=== PATIENT | male | born 1950 | race Caucasian/White ===

== ENCOUNTER 2024-10-18 15:44 | Inpatient (IN) ==
[2024-10-18] MEDS: METHYLPREDNISOLONE SOD SUCC/PF 125 MG/2 ML VIAL IVP ONE (16:10)
[2024-10-18 16:19] LABS: Basophils #(Absolute) Auto 0.0 (0.0-0.1); Eosinophils#(Absolute)Auto 0.0 (0.0-0.3); Eosinophils%(Percent) Auto 0.0 % (0.0-4.0); Monocytes #(Absolute)- Auto 1.0 (0.2-0.8); White Blood Count 15.8 K/uL (3.7-9.6)
[2024-10-18 16:21] LABS: Basophils%(Percent) Auto 0.3 (0.0-1.3); Granulocytes % - Auto 77.3 % (49.1-73.1); Granulocytes#(Absolute)- Auto 12.2 (2.0-6.2); Mean Corpuscular Volume 91.1 fl (81.9-96.5); Monocytes %(Percent)- Auto 6.3 % (4.5-10.7); Platelet Count 135 K/uL (142-355)
[2024-10-18 16:26] LABS: Hematocrit 58.3 % (41.3-50.1)
[2024-10-18 16:27] LABS: Carbon Dioxide 22.0 mmol/L (21-32); Glucose 232.0 mg/dL (70-110); Potassium 3.8 mmol/L (3.6-5.2); Sodium 137.0 mmol/L (136-145)
[2024-10-18 16:28] LABS: Oxygen Saturation ABG 92 % (92-100); PCO2 ABG 24 mmHg (35-45); PO2 ABG 63 mmHg (60-100)
[2024-10-18 19:29] LABS: PH BODY FLUID EXCP BLOOD 6.0 (5 - 9)
[2024-10-19] MEDS ORDERED: AZITHROMYCIN 500 MG VIAL ONE (02:15)
[2024-10-19] MEDS ORDERED: 0.9 % SODIUM CHLORIDE 250 ML IV ONE (02:15)
[2024-10-19] MEDS: AZITHROMYCIN 500 MG 500 MG in 0.9 % SODIUM CHLORIDE 250 ML IV ONE (02:18)
--- NOTE | 2024-10-19 03:14 | Emergency Department Note ---
HPI - SOB/Dyspnea General Chief Complaint: SOB -Shortness of Breath Stated Complaint: FALL Time Seen by Provider: 10/18/24 15:57 Source: patient Mode of arrival: walk-in Limitations: no limitations History of Present Illness HPI Narrative: 74-year-old male patient presents Is alert and oriented x 4 to the ER for his shortness of breath and generalized weakness. She states that this has been going on for couple days progressively getting worse. Patient's brother is at bedside states that the fact the patient this morning lying on the ground. Patient states he has some generalized weakness and that he had a ground-level fall. Denies any loss consciousness or dizziness. MD elicited complaint: Reports shortness of breath and cough; Denies pain with inspiration, chest pain, "asthma attack" or anxiety Pertinent past history: Reports COPD and pneumonia Onset (ago): day(s) (3) Context: Reports recent illness Timing: Reports intermittent Severity: mild Exacerbating factors: Reports movement and coughing Relieving factors: Reports rest Known history of: Reports COPD Associated symptoms: Reports denies other symptoms Treatment prior to arrival: Reports none Related Data Home oxygen amount: none Previous Rx's Medication Instructions Recorded amlodipine 5 mg tablet (Norvasc) See Rx Instructions . Route 10/31/23 .COMPLEX blood pressure #30 tabs losartan 100 mg tablet 100 mg PO DAILY blood pressu re 30 10/31/23 days #30 tabs Allergies Allergy/AdvReac Type Severity Reaction Status Date / Time No Known Drug Allergies Allergy Verified 10/18/24 16:18 Review of Systems Status of ROS 10 or more systems reviewed and unremark able except as noted in history and below Respiratory Reports: shortness of breath, cough and wheezing PFSH PFSH Medical History Afib Skin cancer Arthritis Surgical History H/O hernia repair Hx of appendectomy Social History Smoking status: current every day smoker Within the past year, how often did you have a drink containing alcohol: never Score interpretation: A score less than 4 is consistent with normal alcohol consumption. Non-prescribed substance use: denies use What is your current living situation: I presently have a place to live Feel stressed/tense/nervous/anxious/difficulty sleeping: not at all Due to disability, difficulty making decisions: No Exam Constitutional: normal general appearance, no apparent distress and average body habitus Vital Signs - 24 hr 10/18/24 15:47 10/18/24 16:07 10/18/24 16:32 Temperature 97.5 F L Pulse Rate 121 H 130 H Respiratory Rate 44 H 44 H Blood Pressure 190/102 185/125 Pulse Oximetry 97 96 96 Oxygen Delivery Me thod Room Air Nasal Cannula Oxygen Flow Rate 2 10/18/24 16:32 10/18/24 17:16 10/18/24 17:45 Temperature Pulse Rate 117 H 114 H 108 H Respiratory Rate 35 H 30 H 25 H Blood Pressure 175/101 159/82 158/86 Pulse Oximetry 96 96 96 Oxygen Delivery Me thod Nasal Cannula Nasal Cannula Nasal Cannula Oxygen Flow Rate 2 2 2 10/18/24 18:16 10/18/24 18:46 10/18/24 19:15 Temperature Pulse Rate 117 H 93 H 97 H Respiratory Rate 23 21 21 Blood Pressure 154/89 174/99 169/93 Pulse Oximetry 96 96 96 Oxygen Delivery Me thod Nasal Cannula Nasal Cannula Nasal Cannula Oxygen Flow Rate 2 2 2 10/18/24 20:00 10/18/24 21:00 10/18/24 22:00 Temperature 98.0 F Pulse Rate 98 H 96 H 87 Respiratory Rate 20 20 19 Blood Pressure 148/81 162/82 161/71 Pulse Oximetry 96 96 94 L Oxygen Delivery Me thod Room Air Room Air Room Air Oxygen Flow Rate 10/18/24 23:30 10/19/24 00:02 Temperature 98.2 F 98.2 F Pulse Rate 86 80 Respiratory Rate 19 18 Blood Pressure 146/84 164/85 Pulse Oximetry 95 95 Oxygen Delivery Me thod Room Air Room Air Oxygen Flow Rate 0 0 HENMT: normocephalic Eyes: PERRL and EOMs intact bilaterally Neck/C-Spine: visual inspection normal and trachea midline Lymph: no lymphadenopathy noted and no lymphedema noted Chest: inspection of chest normal and palpation of chest normal Respiratory: breath sounds equal bilaterally, abnormal respiratory effort (labored), auscultation abnormal and wheezing noted Cardiovascular: heart rate abnormal and rhythm abnormal Neurology: meat team lead II-XII intact and no movement abnormality noted Psychiatry: mental status grossly normal and oriented x3 Skin: skin color normal Course Course Hospital Course: Patient was evaluated in the ER found to be in no acute distress. Breath sounds show bilateral expiratory wheezing. Pt was given continuous duobeb treatments with solumedrol 125mg IV. Patient is afebrile during evaluation. Patient is found to be tachycardic and tachypneic. O2 saturation is 97% on room air. EKG shows sinus tachycardia with occasional PVCs. Cardiac rhythm is irregular although continues to be a sinus rhythm. Cardiac enzymes shows elevated ck however troponin is normal x 2. CK is trending down. This could be due to patient being on the floor overnight. Chest x ray shows COPD however CTA chest shows possible infection vs neoplasm. Pt wbc is elevated at 15 which leads more towards infectious. Blood cultures were obtained and Pt was given azithromycin 500mg IV. Pt was found to be hypertensive. Pt has a hx of hypertension however is non compliant with medication. Pt states that he just doesn't like to take medication. Pt further admits that he doesn't take care of himself like he should. Pt has a small hematoma to the forehead and states that he did take a fall. Brother was concerned that the patient had period of confusion. Head CT shows no acute intracranial findings. Pt states that he hasn't been confused, stating that he likes to play with his brother when he asks stupid questions. I have discussed with patient the desire to admit for further evaluation and treatment. Pt has agreed to admission. Vital Signs Vital signs: Vital Signs Temperature 97.5 F L 10/18/24 15:47 Pulse Rate 121 H 10/18/24 15:47 Respiratory Rate 44 H 10/18/24 15:47 Blood Pressure 190/102 10/18/24 15:47 Pulse Oximetry 97 10/18/24 15:47 Oxygen Delivery Method Room Air 10/18/24 15:47 Temperature 98.2 F 10/19/24 00:02 Pulse Rate 80 10/19/24 00:02 Respiratory Rate 18 10/19/24 00:02 Blood Pressure 164/85 10/19/24 00:02 Pulse Oximetry 95 10/19/24 00:02 Oxygen Delivery Method Room Air 10/19/24 00:02 Oxygen Flow Rate 0 10/19/24 00:02 MDM - SOB/Dyspnea Lab Data Labs: Lab Results 10/18/24 10/18/24 10/18/24 Range/Units 16:04 16:16 16:19 WBC 15.8 H (3.7-9.6) K/uL RBC 6.4 H (4.40-5.80) M/uL Hgb 20.0 H* (14.0-17.4) gm/dL Hct 58.3 H* (41.3-50.1) % MCV 91.1 (81.9-96.5) fl MCH 31.2 (27.6-33.7) pg MCHC 34.3 (33.0-35.7) g/dl RDW 13.8 (11.0-14.8) % Plt Count 135 L (142-355) K/uL MPV 11.6 H (6.0-10.4) fl Gran % 77.3 H (49.1-73.1) % Lymph % (Auto) 16.1 L (17.6-39.05) % [place] % (Auto) 6.3 (4.5-10.7) % Eos % (Auto) 0.0 (0.0-4.0) % Baso % (Auto) 0.3 (0.0-1.3) Lymph # (Auto) 2.5 (0.8-2.9) [place] # (Auto) 1.0 H (0.2-0.8) Eos # (Auto) 0.0 (0.0-0.3) Baso # (Auto) 0.0 (0.0-0.1) Absolute Gran (auto) 12.2 H (2.0-6.2) ABG pH 7.42 (7.35-7.45) ABG pCO2 24 L* (35-45) mmHg ABG pO2 63 (60-100) mmHg ABG PO2/FiO2 Ratio ABG HCO3 (22-26) mmo1/L ABG Total CO2 mmo1/L ABG O2 Saturation (92-100) % ABG Base Excess (-2-2) mmo1/L A-a O2 Gradient mmHg Respiratory Index (0-1) FiO2 % Sodium 137 (136-145) mmol/L Potassium 3.8 (3.6-5.2) mmol/L Chloride 100.0 (98-107) mmol/L Carbon Dioxide 22 (21-32) mmol/L Anion Gap 15.0 H (4-14) mEq/L BUN 57 H (7-18) mg/dL Creatinine 1.9 H (0.6-1.3) mg/dL Estimated GFR 36.3 (>59.9) Glucose 232 H (70-110) mg/dL Calcium 9.3 (8.5-10.1) mg/dL Total Bilirubin 0.93 (0.0-1.0) mg/dL AST 58 H (15-37) U/L ALT 49 (30-65) U/L Alkaline Phosphatase 132 (50-136) U/L Total Creatine Kinase 526 H* (39-308) U/L Troponin I High Sens 45.30 (4.0-60.4) ng/L Total Protein 8.1 (6.4-8.2) g/dL Albumin 3.5 (3.4-5.0) g/dL Urine Color (STRAW/YELL.) Urine Appearance (CLEAR) Ur Specific [place] (1.001-1.035) Urine Protein (NEGATIVE) Urine Glucose (UA) (NORMAL) Urine Ketones (NEGATIVE) Urine Occult Blood (NEG - TRACE) Urine Nitrite (NEGATIVE) Urine Bilirubin (NEGATIVE) Urine Urobilinogen (NORMAL) Ur Leukocyte Esterase (NEGATIVE) Urine RBC (0 - 5) Urine WBC ( 0 - 5) Ur Epithelial Cells (Few/HPF) Amorphous Sediment (Negative) Urine Bacteria (Negative) Urine Mucus (Negative) Urine Trichomonas (Negative) Urine Yeast (Negative) Fluid pH (5 - 9) COVID-19 (FARAZ) Not detected (Not Detectd) Influenza Type A Ag Negative (Negative) Influenza Type B Ag Negative (Negative) 10/18/24 10/18/24 10/19/24 Range/Units 16:19 19:15 00:40 WBC (3.7-9.6) K/uL RBC (4.40-5.80) M/uL Hgb (14.0-17.4) gm/dL Hct (41.3-50.1) % MCV (81.9-96.5) fl MCH (27.6-33.7) pg MCHC (33.0-35.7) g/dl RDW (11.0-14.8) % Plt Count (142-355) K/uL MPV (6.0-10.4) fl Gran % (49.1-73.1) % Lymph % (Auto) (17.6-39.05) % [place] % (Auto) (4.5-10.7) % Eos % (Auto) (0.0-4.0) % Baso % (Auto) (0.0-1.3) Lymph # (Auto) (0.8-2.9) [place] # (Auto) (0.2-0.8) Eos # (Auto) (0.0-0.3) Baso # (Auto) (0.0-0.1) Absolute Gran (auto) (2.0-6.2) ABG pH (7.35-7.45) ABG pCO2 (35-45) mmHg ABG pO2 120 (60-100) mmHg ABG PO2/FiO2 Ratio 0.53 ABG HCO3 15.6 L (22-26) mmo1/L ABG Total CO2 16.3 mmo1/L ABG O2 Saturation 92 (92-100) % ABG Base Excess -7.2 L (-2-2) mmo1/L A-a O2 Gradient 57 mmHg Respiratory Index 0.9 (0-1) FiO2 21 % Sodium (136-145) mmol/L Potassium (3.6-5.2) mmol/L Chloride (98-107) mmol/L Carbon Dioxide (21-32) mmol/L Anion Gap (4-14) mEq/L BUN (7-18) mg/dL Creatinine (0.6-1.3) mg/dL Estimated GFR (>59.9) Glucose (70-110) mg/dL Calcium (8.5-10.1) mg/dL Total Bilirubin (0.0-1.0) mg/dL AST (15-37) U/L ALT (30-65) U/L Alkaline Phosphatase (50-136) U/L Total Creatine Kinase 505 H* (39-308) U/L Troponin I High Sens 33.20 (4.0-60.4) ng/L Total Protein (6.4-8.2) g/dL Albumin (3.4-5.0) g/dL Urine Color [place]nal[place] (STRAW/YELL.) Urine Appearance Clear (CLEAR) Ur Specific [place] 1.020 (1.001-1.035) Urine Protein Negative (NEGATIVE) Urine Glucose (UA) Trace (NORMAL) Urine Ketones Negative (NEGATIVE) Urine Occult Blood Trace (NEG - TRACE) Urine Nitrite Negative (NEGATIVE) Urine Bilirubin Negative (NEGATIVE) Urine Urobilinogen Normal (NORMAL) Ur Leukocyte Esterase Negative (NEGATIVE) Urine RBC 5 - 10 (0 - 5) Urine WBC 2 - 5 ( 0 - 5) Ur Epithelial Cells Rare (Few/HPF) Amorphous Sediment Few (Negative) Urine Bacteria Negative (Negative) Urine Mucus Negative (Negative) Urine Trichomonas Negative (Negative) Urine Yeast Negative (Negative) Fluid pH 6.0 (5 - 9) COVID-19 (FARAZ) (Not Detectd) Influenza Type A Ag (Negative) Influenza Type B Ag (Negative) Discharge Plan Discharge Patient Disposition: Admitted As Observation Condition: Stable Clinical Impression: Acute exacerbation of chronic obstructive pulmonary disease, Pneumonia Time of Disposition: 03:16
[2024-10-19] MEDS ORDERED: ONDANSETRON HCL/PF 4 MG/2 ML VIAL INJ PRN (03:17)
[2024-10-19] MEDS: CEFTRIAXONE SODIUM 1 GM in 0.9 % SODIUM CHLORIDE MB+ 50 ML IV ONE (04:12)
[2024-10-19] MEDS: 0.9 % SODIUM CHLORIDE 1000 ML 1,000 ML IV SCH (04:13)
[2024-10-19] MEDS: IPRATROPIUM/ALBUTEROL SULFATE 3 ML AMPUL.NEB INH ONE ×3 (04:13→15:28)
[2024-10-19 05:31] LABS: Basophils #(Absolute) Auto 0.0 (0.0-0.1); Basophils%(Percent) Auto 0.1 (0.0-1.3); Eosinophils#(Absolute)Auto 0.0 (0.0-0.3); Eosinophils%(Percent) Auto 0.0 % (0.0-4.0); Granulocytes % - Auto 80.4 % (49.1-73.1); Granulocytes#(Absolute)- Auto 8.0 (2.0-6.2); Hematocrit 47.0 % (41.3-50.1); Mean Corpuscular Volume 89.6 fl (81.9-96.5); Monocytes #(Absolute)- Auto 0.5 (0.2-0.8); Monocytes %(Percent)- Auto 5.2 % (4.5-10.7); Platelet Count 102 K/uL (142-355); White Blood Count 10.0 K/uL (3.7-9.6)
[2024-10-19 05:51] LABS: Carbon Dioxide 18.0 mmol/L (21-32); Glucose 205.0 mg/dL (70-110); Potassium 3.8 mmol/L (3.6-5.2); Sodium 136.0 mmol/L (136-145)
[2024-10-19] MEDS: IPRATROPIUM/ALBUTEROL SULFATE 3 ML AMPUL.NEB INH SCH (08:13)
[2024-10-19] MEDS: AMLODIPINE BESYLATE 5 MG TABLET PO SCH (08:54)
[2024-10-19] MEDS: METHYLPREDNISOLONE SOD SUCC/PF 40 MG/ML VIAL INJ SCH (08:54)
--- NOTE | 2024-10-19 10:32 | History & Physical Report ---
H&P: HPI History of Present Illness Chief complaint: PNEUMONIA,COPD EXACERBATION Narrative: Pleasant 74 year old male admitted for sob, falling. History of HTN. Patient with Total CK of 526 thought to be from laying in floor s/p fall. Albumin 2.8. Was treated with Solumedrol and Azithromycin. Blood cultures pending. CT Head with chronic microvascular changes, no acute changes. Stable 5.1 x 4.3 cm frontal region mass consistent with meningioma. Chest xray positive for COPD. CTA negative for PE, findings of infectious vs malignancy. Ulcerative plaques on thoracic abdominal aorta. Today he just states he has not been feeling well "since all this has been going on" pointing to chest and stomach. He is lying right side on exam. Review of Systems Status of ROS 10 or more systems reviewed and unremark able except as noted in history and below Cardiovascular Reports: shortness of breath with exertion Respiratory Reports: shortness of breath, cough and wheezing Allergic/Immunologic Reports: wheezing PFSH PFSH Medical History Afib Skin cancer Arthritis Surgical History H/O hernia repair Hx of appendectomy Social History Smoking status: current every day smoker Within the past year, how often did you have a drink containing alcohol: never Score interpretation: A score less than 4 is consistent with normal alcohol consumption. Non-prescribed substance use: denies use What is your current living situation: I presently have a place to live Highest level of school completed/degree received: decline to answer Feel stressed/tense/nervous/anxious/difficulty sleeping: not at all Due to disability, difficulty making decisions: No Meds Home Medications and Allergies Home Medications Medication Instructions Recorded Confirmed Type amlodipine 5 mg tablet (Norvasc) See Rx Instructions . Route 10/31/23 10/19/24 Rx .COMPLEX blood pressure #30 tabs losartan 100 mg tablet 100 mg PO DAILY blood pressu re 30 10/31/23 10/19/24 Rx days #30 tabs Allergies Allergy/AdvReac Type Severity Reaction Status Date / Time No Known Drug Allergies Allergy Verified 10/18/24 16:18 Exam Constitutional: normal general appearance (frail, ill appearing), no apparent distress, average body habitus and alert Vital Signs - 24 hr 10/18/24 15:47 10/18/24 16:07 10/18/24 16:32 Temperature 97.5 F L Pulse Rate 121 H 130 H Pulse Rate [Left] Respiratory Rate 44 H 44 H Blood Pressure 190/102 185/125 Blood Pressure [Le ft Arm] Pulse Oximetry 97 96 96 Oxygen Delivery Me thod Room Air Nasal Cannula Oxygen Flow Rate 2 10/18/24 16:32 10/18/24 17:16 10/18/24 17:45 Temperature Pulse Rate 117 H 114 H 108 H Pulse Rate [Left] Respiratory Rate 35 H 30 H 25 H Blood Pressure 175/101 159/82 158/86 Blood Pressure [Le ft Arm] Pulse Oximetry 96 96 96 Oxygen Delivery Me thod Nasal Cannula Nasal Cannula Nasal Cannula Oxygen Flow Rate 2 2 2 10/18/24 18:16 10/18/24 18:46 10/18/24 19:15 Temperature Pulse Rate 117 H 93 H 97 H Pulse Rate [Left] Respiratory Rate 23 21 21 Blood Pressure 154/89 174/99 169/93 Blood Pressure [Le ft Arm] Pulse Oximetry 96 96 96 Oxygen Delivery Me thod Nasal Cannula Nasal Cannula Nasal Cannula Oxygen Flow Rate 2 2 2 10/18/24 20:00 10/18/24 21:00 10/18/24 22:00 Temperature 98.0 F Pulse Rate 98 H 96 H 87 Pulse Rate [Left] Respiratory Rate 20 20 19 Blood Pressure 148/81 162/82 161/71 Blood Pressure [Le ft Arm] Pulse Oximetry 96 96 94 L Oxygen Delivery Me thod Room Air Room Air Room Air Oxygen Flow Rate 10/18/24 23:30 10/19/24 00:02 10/19/24 03:55 Temperature 98.2 F 98.2 F Pulse Rate 86 80 79 Pulse Rate [Left] Respiratory Rate 19 18 Blood Pressure 146/84 164/85 Blood Pressure [Le ft Arm] Pulse Oximetry 95 95 Oxygen Delivery Me thod Room Air Room Air Oxygen Flow Rate 0 0 10/19/24 03:56 10/19/24 03:56 10/19/24 08:00 Temperature 97.2 F L 97.5 F L Pulse Rate Pulse Rate [Left] 85 85 Respiratory Rate 24 24 19 Blood Pressure Blood Pressure [Le ft Arm] 141/89 150/80 Pulse Oximetry 92 L 92 L 92 L Oxygen Delivery Me thod Room Air Room Air Room Air Oxygen Flow Rate 10/19/24 08:13 Temperature Pulse Rate Pulse Rate [Left] Respiratory Rate Blood Pressure Blood Pressure [Le ft Arm] Pulse Oximetry 92 L Oxygen Delivery Me thod Oxygen Flow Rate HENMT: normocephalic and head/scalp atraumatic Eyes: EOMs intact bilaterally Neck/C-Spine: visual inspection normal and trachea midline Lymph: no lymphadenopathy noted and no lymphedema noted Chest: inspection of chest normal Respiratory: breath sounds equal bilaterally, normal respiratory effort, clear to auscultation bilaterally and no wheezes Cardiovascular: normal heart rate noted, regular rhythm noted, no gallop, no rub, no murmur and no JVD Gastrointestinal: abdomen normal to inspection, abdomen soft to palpation, normoactive bowel sounds and no ascites Genitourinary: deferred Extremities: normal to inspection, normal to palpation and no tenderness Neurology: chiller technician II-XII intact, no movement abnormality noted and no fasciculations noted Psychiatry: mental status grossly normal and oriented x3 Skin: skin color normal Assessment and Plan Assessment and Plan (1) COPD exacerbation: Code(s): J44.1 - Chronic obstructive pulmonary disease with (acute) exacerbation (2) Fall: Code(s): W19.XXXA - Unspecified fall, initial encounter (3) YOLANDA (acute kidney injury): Code(s): N17.9 - Acute kidney failure, unspecified (4) Hypoalbuminemia: Code(s): E88.09 - Other disorders of plasma-protein metabolism, not elsewhere classified (5) High plasma creatine kinase (CK): Code(s): R79.89 - Other specified abnormal findings of blood chemistry Plan Continue IV rehydration Blood culture pending Azithromycin Repeat CBC, CMP in am. Replace albumin Continue Home medications Routine vital signs. Results Labs Labs: CBC 10/18/24 10/19/24 Range/Units 16:16 05:27 WBC 15.8 H 10.0 H (3.7-9.6) K/uL RBC 6.4 H 5.3 (4.40-5.80) M/uL Hgb 20.0 H* 16.5 (14.0-17.4) gm/dL Hct 58.3 H* 47.0 (41.3-50.1) % Plt Count 135 L 102 L (142-355) K/uL Gran % 77.3 H 80.4 H (49.1-73.1) % Lymph % (Auto) 16.1 L 14.3 L (17.6-39.05) % [place] % (Auto) 6.3 5.2 (4.5-10.7) % Eos % (Auto) 0.0 0.0 (0.0-4.0) % Baso % (Auto) 0.3 0.1 (0.0-1.3) Lymph # (Auto) 2.5 1.4 (0.8-2.9) [place] # (Auto) 1.0 H 0.5 (0.2-0.8) Eos # (Auto) 0.0 0.0 (0.0-0.3) Baso # (Auto) 0.0 0.0 (0.0-0.1) Absolute Gran (auto) 12.2 H 8.0 H (2.0-6.2) CMP 10/18/24 10/19/24 16:16 05:27 Sodium 137 136 Potassium 3.8 3.8 Chloride 100.0 104.0 Carbon Dioxide 22 18 L BUN 57 H 49 H Creatinine 1.9 H 1.5 H Glucose 232 H 205 H Calcium 9.3 8.4 L Cardiac Enzymes 10/18/24 10/19/24 16:16 00:40 Total Creatine Kinase 526 H* 505 H* Liver Function 10/18/24 10/19/24 Range/Units 16:16 05:27 Total Bilirubin 0.93 0.69 (0.0-1.0) mg/dL AST 58 H 45 H (15-37) U/L ALT 49 39 (30-65) U/L Alkaline Phosphatase 132 107 (50-136) U/L Albumin 3.5 2.8 L (3.4-5.0) g/dL Urine 10/18/24 19:15 Urine Color [place] Urine Appearance Clear Ur Specific [place] 1.020 Urine Protein 2+ Urine Glucose (UA) Trace ABG ABG results: 10/18/24 16:19 ABG pH 7.42 ABG pCO2 24 L* ABG pO2 120 ABG HCO3 15.6 L ABG Total CO2 16.3 ABG O2 Saturation 92 ABG Base Excess -7.2 L
[2024-10-19] MEDS ORDERED: ALBUMIN HUMAN 25% 100 ML IV SCH ×2 (10:45→11:30)
[2024-10-19] MEDS: ALBUMIN HUMAN 25% 100 ML IV STA (11:28)
[2024-10-20 04:58] LABS: Basophils #(Absolute) Auto 0.0 (0.0-0.1); Basophils%(Percent) Auto 0.1 (0.0-1.3); Eosinophils#(Absolute)Auto 0.0 (0.0-0.3); Eosinophils%(Percent) Auto 0.0 % (0.0-4.0); Granulocytes % - Auto 85.8 % (49.1-73.1); Granulocytes#(Absolute)- Auto 12.2 (2.0-6.2); Hematocrit 42.8 % (41.3-50.1); Mean Corpuscular Volume 88.7 fl (81.9-96.5); Monocytes #(Absolute)- Auto 0.8 (0.2-0.8); Monocytes %(Percent)- Auto 5.7 % (4.5-10.7); Platelet Count 122 K/uL (142-355); White Blood Count 14.2 K/uL (3.7-9.6)
[2024-10-20 05:46] LABS: Carbon Dioxide 22.0 mmol/L (21-32); Glucose 148.0 mg/dL (70-110); Potassium 3.6 mmol/L (3.6-5.2); Sodium 137.0 mmol/L (136-145)
[2024-10-20] MEDS: AZITHROMYCIN 500 MG 500 MG in 0.9 % SODIUM CHLORIDE 250 ML IV SCH (09:31)
[2024-10-20] MEDS: guaiFENesin 600 MG TAB.ER.12H PO SCH (09:31)
[2024-10-20] MEDS: CEFTRIAXONE SODIUM 1 GM in 0.9 % SODIUM CHLORIDE MB+ 50 ML IV SCH (09:33)
[2024-10-20] MEDS: IPRATROPIUM/ALBUTEROL SULFATE 3 ML AMPUL.NEB INH SCH (11:16)
--- NOTE | 2024-10-20 11:43 | Progress Note ---
Progress Note: Subjective Subjective Interval history: Mr. Flannery has no complaints this morning. He states that he is beginning to feel better after tx. Vitals at baseline. BUN trended down to 30 and CK is normal with IVF we will continue hydration. Glucoses have been elevated with no hx of diabetes so we will check A1C. WBC's are still elevated at 14, steriods vs PNA. Exam Constitutional: normal general appearance, no apparent distress and average body habitus Vital Signs - 24 hr 10/19/24 12:00 10/19/24 12:56 10/19/24 15:59 Temperature 97.5 F L 97.9 F Pulse Rate [Left] 74 74 Respiratory Rate 19 19 Blood Pressure Blood Pressure [Le ft Arm] 148/78 125/89 Pulse Oximetry 94 L 91 L 96 Oxygen Delivery Me thod Room Air Room Air 10/19/24 20:00 10/19/24 20:29 10/20/24 00:00 Temperature 98.6 F 98.4 F Pulse Rate [Left] 74 80 Respiratory Rate 19 18 Blood Pressure Blood Pressure [Le ft Arm] 132/62 166/81 Pulse Oximetry 95 95 93 L Oxygen Delivery Me thod Room Air Room Air 10/20/24 04:00 10/20/24 07:30 10/20/24 07:58 Temperature 98.0 F 98 F Pulse Rate [Left] 67 70 Respiratory Rate 19 17 Blood Pressure Blood Pressure [Le ft Arm] 131/81 129/75 Pulse Oximetry 95 91 L 89 L Oxygen Delivery Me thod Room Air Room Air 10/20/24 09:31 10/20/24 11:16 Temperature Pulse Rate [Left] Respiratory Rate Blood Pressure 129/75 Blood Pressure [Le ft Arm] Pulse Oximetry 93 L Oxygen Delivery Me thod HENMT: normocephalic Eyes: PERRL and EOMs intact bilaterally Neck/C-Spine: visual inspection normal and trachea midline Lymph: no lymphadenopathy noted and no lymphedema noted Chest: inspection of chest normal and palpation of chest normal Respiratory: breath sounds equal bilaterally, abnormal respiratory effort (labored), auscultation abnormal and wheezing noted Cardiovascular: heart rate abnormal and rhythm abnormal 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: 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 and no movement abnormality noted Psychiatry: mental status grossly normal and oriented x3 Skin: skin color normal Progress Note: Objective Labs Labs: CBC 10/20/24 Range/Units 04:30 WBC 14.2 H (3.7-9.6) K/uL RBC 4.8 (4.40-5.80) M/uL Hgb 15.0 (14.0-17.4) gm/dL Hct 42.8 (41.3-50.1) % Plt Count 122 L (142-355) K/uL Gran % 85.8 H (49.1-73.1) % Lymph % (Auto) 8.4 L (17.6-39.05) % [place] % (Auto) 5.7 (4.5-10.7) % Eos % (Auto) 0.0 (0.0-4.0) % Baso % (Auto) 0.1 (0.0-1.3) Lymph # (Auto) 1.2 (0.8-2.9) [place] # (Auto) 0.8 (0.2-0.8) Eos # (Auto) 0.0 (0.0-0.3) Baso # (Auto) 0.0 (0.0-0.1) Absolute Gran (auto) 12.2 H (2.0-6.2) CMP 10/20/24 04:30 Sodium 137 Potassium 3.6 Chloride 104.0 Carbon Dioxide 22 BUN 30 H Creatinine 1.1 Glucose 148 H Calcium 8.3 L Cardiac Enzymes 10/20/24 04:30 Total Creatine Kinase 252 Liver Function 10/20/24 Range/Units 04:30 Total Bilirubin 0.65 (0.0-1.0) mg/dL AST 39 H (15-37) U/L ALT 35 (30-65) U/L Alkaline Phosphatase 87 (50-136) U/L Albumin 3.0 L (3.4-5.0) g/dL Urine 10/18/24 19:15 Urine Color Annalise Urine Appearance Clear Ur Specific [place] 1.020 Urine Protein 2+ Urine Glucose (UA) Trace Imaging CT scan - head: Radiologist's impression: [place] [address] [place] [address] CT Scan Report Signed Patient: SUBHA FLANNERY MR#: [id number] : 1950 Acct:[id number] Age/Sex: 74 / M ADM Date: 10/18/24 Loc: ED Attending Dr: Ordering Physician: Keith Borjas NP Date of Service: 10/18/24 Procedure(s): CT head/brain wo con Accession Number(s): [id number] cc: Keith Borjas [employer]ER; Provider,NO PCP~ EXAM: HEAD CT WITHOUT INTRAVENOUS CONTRAST HISTORY: Altered mental status. TECHNIQUE: Spiral axial CT images are obtained through the brain without the administration of intravenous contrast. Additional sagittal and coronal reformatted images are reconstructed. COMPARISON: Head CT dated October 16, 2023. FINDINGS: There is a stable appearing, large (approximately 5.1 cm AP by 5.1 cm transverse by 4.3 cm CC) bilateral anterior inferior frontal region extra-axial mass with punctate internal calcifications, consistent with a meningioma. There is stable appearance of resultant mass effect upon the anterior inferior medial frontal lobes. There are parenchymal lucencies within the white matter tracks of the centrum semiovale, consistent with chronic sequela of atherosclerotic microvascular ischemic disease. There is diffuse cerebral cortical atrophy. The centrum semiovale, basal ganglia, cerebellum, and brainstem are otherwise grossly unremarkable for a noncontrast CT scan. There is no acute intracranial hemorrhage, gross acute infarction, intra-axial mass lesion, midline shift, or hydrocephalus seen. No extra-axial mass or abnormal fluid collection noted. The calvarium is intact. The partially imaged paranasal sinuses, middle ear cavities and mastoid air cells are clear. IMPRESSION: 1. Chronic microvascular ischemic disease, but no discernible acute infarction seen. Consider followup MRI with diffusion-weighted imaging to rule out occult acute infarction if clinically warranted. 2. No skull fracture, intracranial hemorrhage, intra-axial mass lesion, midline shift, or hydrocephalus seen. 3. Stable appearing, large (approximately 5.1 cm AP by 5.1 cm transverse by 4.3 cm CC) bilateral anterior inferior frontal region extra-axial mass with punctate internal calcifications, consistent with a meningioma. 4. Stable appearance of resultant mass effect upon the anterior inferior medial frontal lobes. 5. Otherwise unremarkable exam, without significant interval change seen. THIS IS AN ELECTRONICALLY VERIFIED FINAL REPORT 10/18/2024 5:26 PM - Electronically signed by Dov Dent MD Dictated By: Dov Dent M.D. Signed By: 10/18/24 1726 Chest x-ray: Radiologist's impression: Patient: SUBHA FLANENRY MR#: [id number] : 1950 Acct:[id number] Age/Sex: 74 / M ADM Date: 10/18/24 Loc: ED Attending Dr: Ordering Physician: Keith Borjas NP Date of Service: 10/18/24 Procedure(s): XR chest 1V Accession Number(s): [id number] cc: Keith Borjas NP~ EXAM: XR CHEST 1V HISTORY: shortness of breathshortness of breath; COMPARISON: 10/31/2023 FINDINGS: The trachea is midline. The cardiac silhouette is unremarkable. COPD the lungs are clear without focal infiltrate or effusion. The bony thorax is unremarkable. IMPRESSION: COPD No acute cardiopulmonary disease. THIS IS AN ELECTRONICALLY VERIFIED FINAL REPORT 10/18/2024 9:53 PM - Electronically signed by Brian Gonzalez MD Dictated By: Brian Gonzalez M.D. Signed By: 10/18/[id number] CT scan - chest: Radiologist's impression: [place] [address] CT Scan Report Signed Patient: SUBHA FLANNERY MR#: [id number] : 1950 Acct:[id number] Age/Sex: 74 / M ADM Date: 10/18/24 Loc: ED Attending Dr: Ordering Physician: Keith Borjas NP Date of Service: 10/18/24 Procedure(s): CT angio chest PE protocol Accession Number(s): [id number] cc: Keith Borjas NP; Provider,NO PCP~ EXAM: CTA CHEST WITH CONTRAST HISTORY: Shortness of breath COMPARISON: None. TECHNIQUE: Axial images were acquired of the chest with IV contrast for a CT angiogram. Coronal and sagittal images were provided. All images were reviewed in a variety of windows and levels. 3D 8 mm thick MIPS images were provided. RADIATION REDUCTION TECHNIQUE: Automated exposure control, Adjustment of the mA and/or kV according to patient size, or iterative reconstruction techniques were used. 8 mm thick axial MIPS images were provided. FINDINGS: CHEST: THYROID GLAND: The thyroid gland is unremarkable. HEART AND VESSELS: The heart size is within normal limits. There is no evidence of a pericardial effusion. The thoracic aorta is normal in size without evidence of aneurysm or dissection. The main pulmonary artery size is within normal limits. There are no filling defects seen in the visualized pulmonary arteries to suggest a pulmonary embolism. LYMPHNODES: There is no evidence of axillary, mediastinal, or hilar lymphadenopathy, AIRWAY: The trachea and mainstem bronchi are patent. No intraluminal lesions are seen. LUNGS: Nodules are seen in a tree-in-bud like distribution throughout the right and left lung. This is most pronounced in the right lower lung zone. This could represent such etiology as, but not limited to infectious process or endobronchial spread of malignancy. There is no pleural effusion or pneumothorax. ESOPHAGUS: The esophagus is grossly unremarkable. BONES: The visualized bones demonstrate degenerative changes. There are no concerning lytic or blastic lesions identified. UPPER ABDOMINAL STRUCTURES: The visualized portions of the upper abdominal st ructures demonstrates incompletely characterized bilateral adrenal gland nodules which measure 32 mm in the right adrenal gland and 29 mm in the left adrenal gland. Diffuse ulcerative plaques are noted throughout the thoracic and visualized portions of the abdominal aorta. IMPRESSION: 1. There are no filling defects seen in the visualized pulmonary arteries to suggest a pulmonary embolism. 2. Nodules are seen in a tree-in-bud like distribution throughout the right and left lung. This is most pronounced in the right lower lung zone. This could represent such etiology as, but not limited to infectious process or endobronchial spread of malignancy. 3. Emphysematous changes are noted. 4. The visualized portions of the upper abdominal structures demonstrates incompletely characterized bilateral adrenal gland nodules which measure 32 mm in the right adrenal gland and 29 mm in the left adrenal gland. 5. Diffuse ulcerative plaques are noted throughout the thoracic and visualized portions of the abdominal aorta. THIS IS AN ELECTRONICALLY VERIFIED FINAL REPORT 10/19/2024 12:05 AM - Electronically signed by Amanuel Bender MD Dictated By: Amanuel Bender M.D. Signed By: Progress Note: A&P Assessment and Plan (1) COPD exacerbation: Assessment and Plan: Zpak Rocephin 1gm IV daily Duoneb QID Pulmicort BID Mucinex 600mg po BID Solumedrol 40mg IV BID (2) Fall: Assessment and Plan: PT eval (3) YOLANDA (acute kidney injury): Assessment and Plan: NS@75ml/hr (4) Hypoalbuminemia: Assessment and Plan: Continue to monitor (5) High plasma creatine kinase (CK): Assessment and Plan: Resolved Plan Admit Continue IV rehydration Blood culture pending Repeat CBC, CMP in am. Continue Home medications Routine vital signs. Fall Risk Details Topete Fall Scale Risk Level: High Fall Risk Current Medications: Current Medications Acetaminophen (Acetaminophen 325 Mg Tablet) 650 mg PO Q4H PRN PRN Reason: Pain Albuterol Sulfate (Ipratropium/Albuterol Sulfate 3 Ml Ampul.Neb) 3 ml INH RQID [facility] Last Admin: 10/20/24 11:16 Dose: 3 ml Amlodipine Besylate (Amlodipine Besylate 5 Mg Tablet) 5 mg PO DAILY [facility] Last Admin: 10/20/24 09:31 Dose: 5 mg Budesonide (Budesonide 0.5 Mg/2 Ml Ampul.Neb) 0.5 mg INH RBID [facility] Guaifenesin (Guaifenesin 600 Mg Tab.Er.12h) 600 mg PO BID [facility] Last Admin: 10/20/24 09:31 Dose: 600 mg Sodium Chloride (Sodium Chloride) 1,000 mls @ 75 mls/hr IV CONT [facility] Last Admin: 10/19/24 17:06 Dose: 75 mls/hr Ceftriaxone Sodium 1 gm/ (Sodium Chloride) 50 mls @ 100 mls/hr IV DAILY [facility] Last Infusion: 10/20/24 10:58 Dose: Infused Azithromycin 500 mg/ Sodium (Chloride) 250 mls @ 250 mls/hr IV DAILY [facility] Last Infusion: 10/20/24 10:57 Dose: Infused Methylprednisolone Sodium Succinate (Methylprednisolone Sod Succ/Pf 40 Mg/Ml Vial) 40 mg INJ Q12H [facility] Last Admin: 10/20/24 09:33 Dose: 40 mg Nicotine (Nicotine 14 Mg Patch.Td24) 1 each TD DAILY [facility] Last Admin: 10/20/24 09:30 Dose: 1 each Ondansetron HCl (Ondansetron Hcl/Pf 4 Mg/2 Ml Vial) 4 mg INJ Q6H PRN PRN Reason: Nausea And Vomiting Time Spent With Patient Time: Total time spent is greater than 50% in coordination of care (as documented) at patient's floor/unit and/or counseling patient:
[2024-10-20] MEDS ORDERED: SIMETHICONE 20 MG/0.3 ML PO PRN (17:02)
[2024-10-20] MEDS: BUDESONIDE 0.5 MG/2 ML AMPUL.NEB INH SCH (20:50)
[2024-10-20] MEDS: ACETAMINOPHEN 325 MG TABLET PO PRN (21:01)
[2024-10-21 04:41] LABS: Basophils #(Absolute) Auto 0.0 (0.0-0.1); Basophils%(Percent) Auto 0.0 (0.0-1.3); Eosinophils#(Absolute)Auto 0.0 (0.0-0.3); Eosinophils%(Percent) Auto 0.0 % (0.0-4.0); Granulocytes % - Auto 87.9 % (49.1-73.1); Granulocytes#(Absolute)- Auto 10.3 (2.0-6.2); Hematocrit 39.8 % (41.3-50.1); Mean Corpuscular Volume 89.0 fl (81.9-96.5); Monocytes #(Absolute)- Auto 0.4 (0.2-0.8); Monocytes %(Percent)- Auto 3.7 % (4.5-10.7); Platelet Count 134 K/uL (142-355); White Blood Count 11.7 K/uL (3.7-9.6)
[2024-10-21 05:05] LABS: Carbon Dioxide 23.0 mmol/L (21-32); Glucose 174.0 mg/dL (70-110); Potassium 3.4 mmol/L (3.6-5.2); Sodium 136.0 mmol/L (136-145)
[2024-10-21] MEDS: AZITHROMYCIN 500 MG 500 MG in 0.9 % SODIUM CHLORIDE 250 ML IV SCH (11:06)
[2024-10-21] MEDS: POTASSIUM CHLORIDE 20 MEQ TAB.ER.PRT PO ONE (16:01)
--- NOTE | 2024-10-21 16:23 | Progress Note ---
Progress Note: Subjective Subjective Interval history: Mr. Flannery has no complaints this morning. He states that he is feeling some better, but gets dyspneic and fatigued with minimal exertion. BUN has continued to trend downward and is 18 this morning. Glucose continues to be elevated; likely steroid induced. A1C 5.7. WBC's are still elevated at 11.7, but trending downward; steroids vs PNA. Exam Exam: Patient received sitting up in bed in no acute distress at rest. He is chronically ill-appearing and thin. Lungs with wheezing and rhonchi throughout. Patient with increased work of breathing and fatigue with minimal exertion. Patient reports he's noncompliant with medications at home. Denies home O2. Currently lives alone in a "handicap apartment" per patient's brother. He does smoke cigarettes and has reportedly smoked 2 PPD since the age of 15. He reports that he has been smoking approximately 1/2 PPD for the past week due to an increase in dyspnea. Constitutional: normal general appearance, no apparent distress, abnormal body habitus (cachectic) and (thin) and alert Vital Signs - 24 hr 10/20/24 19:47 10/20/24 20:50 10/21/24 00:15 Temperature 97.9 F 97.7 F Pulse Rate Pulse Rate [Left] 104 H 83 Respiratory Rate 22 20 Blood Pressure [Le ft Arm] 160/76 138/56 Pulse Oximetry 95 93 L 92 L Oxygen Delivery Me thod Oxygen Flow Rate Fraction of Inspir ed Oxygen 10/21/24 04:00 10/21/24 07:41 10/21/24 08:00 Temperature 97.6 F 96.9 F L Pulse Rate Pulse Rate [Left] 74 70 Respiratory Rate 16 17 Blood Pressure [Le ft Arm] 150/79 162/80 Pulse Oximetry 95 95 93 L Oxygen Delivery Me thod Room Air Room Air Oxygen Flow Rate Fraction of Inspir ed Oxygen 10/21/24 11:06 10/21/24 11:46 10/21/24 12:06 Temperature 97.8 F Pulse Rate 80 Pulse Rate [Left] 78 Respiratory Rate 17 Blood Pressure [Le ft Arm] 149/76 Pulse Oximetry 95 97 95 Oxygen Delivery Me thod Aerosol Mask Room Air Oxygen Flow Rate 2 Fraction of Inspir ed Oxygen 28 10/21/24 15:26 10/21/24 16:00 Temperature 98.2 F Pulse Rate Pulse Rate [Left] 59 L Respiratory Rate 19 Blood Pressure [Le ft Arm] 157/68 Pulse Oximetry 95 91 L Oxygen Delivery Me thod Room Air Oxygen Flow Rate Fraction of Inspir ed Oxygen HENMT: normocephalic, head/scalp atraumatic, hearing grossly normal bilaterally, external ears normal, EACs normal, nasal mucous membranes normal, external nose normal, oral mucous membranes normal and oropharynx normal Eyes: PERRL, EOMs intact bilaterally, conjunctivae normal, no scleral icterus and periorbital findings normal Neck/C-Spine: visual inspection normal, trachea midline, cervical spine nontender, cervical full ROM noted, supple, no meningeal signs and thyroid normal Lymph: no lymphadenopathy noted and no lymphedema noted Chest: inspection of chest normal Respiratory: breath sounds unequal, auscultation abnormal, wheezing noted (scattered wheezes), rales noted (throughout), no retractions and chest percussion normal Cardiovascular: heart rate abnormal (bradycardic), rhythm abnormal (irregular), no gallop, no rub, murmur noted, no JVD, no clicks, peripheral pulses 2+ throughout, no bruits noted and no additional abnormal heart sounds Gastrointestinal: abdomen normal to inspection, abdomen soft to palpation, nontender to palpation, nondistended, normoactive bowel sounds, no masses, no pulsatile mass, no ascites and no hernia Genitourinary: no CVA tenderness and bladder normal to palpation Back/Pelvis: spine normal to inspection, no thoracic spine tenderness and no lumbar spine tenderness Extremities: normal to inspection, normal to palpation, no tenderness, full ROM, no joint enlargement and no deformity 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, no movement abnormality noted, no sensory deficits noted, deep tendon reflexes 2+ bilaterally, gait abnormality noted (staggering), speech normal, coordination normal, no pronator drift noted, no fasciculations noted and GCS normal Psychiatry: Mental Status Exam documented within this Exam's Psych section mental status grossly normal, oriented x3, thought process normal, cooperative, affect normal and psychomotor activity normal Feel stressed/tense/nervous/anxious/difficulty sleeping: not at all Skin: nails abnormality noted Reports (clubbing) Progress Note: Objective Labs Labs: CBC 10/21/24 Range/Units 04:00 WBC 11.7 H (3.7-9.6) K/uL RBC 4.5 (4.40-5.80) M/uL Hgb 13.6 L (14.0-17.4) gm/dL Hct 39.8 L (41.3-50.1) % Plt Count 134 L (142-355) K/uL Gran % 87.9 H (49.1-73.1) % Lymph % (Auto) 8.4 L (17.6-39.05) % [place] % (Auto) 3.7 L (4.5-10.7) % Eos % (Auto) 0.0 (0.0-4.0) % Baso % (Auto) 0.0 (0.0-1.3) Lymph # (Auto) 1.0 (0.8-2.9) [place] # (Auto) 0.4 (0.2-0.8) Eos # (Auto) 0.0 (0.0-0.3) Baso # (Auto) 0.0 (0.0-0.1) Absolute Gran (auto) 10.3 H (2.0-6.2) CMP 10/21/24 04:00 Sodium 136 Potassium 3.4 L Chloride 105.0 Carbon Dioxide 23 BUN 18 Creatinine 0.9 Glucose 174 H Calcium 7.8 L Liver Function 10/21/24 Range/Units 04:00 Total Bilirubin 0.60 (0.0-1.0) mg/dL AST 34 (15-37) U/L ALT 38 (30-65) U/L Alkaline Phosphatase 83 (50-136) U/L Albumin 2.6 L (3.4-5.0) g/dL Urine 10/18/24 19:15 Urine Color Annalise Urine Appearance Clear Ur Specific [place] 1.020 Urine Protein 2+ Urine Glucose (UA) Trace Progress Note: A&P Assessment and Plan (1) COPD exacerbation: Assessment and Plan: 1. Continue Zithromax 500mg IV daily 2. Continue Rocephin 1gm IV daily 3. Continue Duoneb QID 4. Continue Pulmicort BID 5. Continue Mucinex 600mg po BID 6. Continue Solumedrol 40mg IV BID 7. CTA-Nodules are seen in a tree-in-bud like distribution throughout the right and left lung. This is most pronounced in the right lower lung zone. This could represent such etiology as, but not limited to infectious process or endobronchial spread of malignancy. Emphysematous changes are noted. 8. Pulmonology referral upon discharge 9. Consider walk test due to increased dyspnea with exertion (2) Fall: Assessment and Plan: 1. PT evaluation 2. Consider home health referral at discharge if patient agreeable (3) YOLANDA (acute kidney injury): Assessment and Plan: 1. Continue IVFs NS@75ml/hr 2. Repeat CMP in am 3. Minimize/avoid nephrotoxins (4) Hypoalbuminemia: Assessment and Plan: 1. Continue to monitor (5) High plasma creatine kinase (CK): Assessment and Plan: 1. Continue IVFs 2. Serial CK has trended downward and is WNL (6) Leukocytosis: Assessment and Plan: 1. Viral panel negative 2. Urinalysis negative 3. CXR 4. Continue Rocephin 1 gram IV daily 5. Continue Zithromax 500mg IV daily 6. SoluMedrol 7. Repeat CBC in am (7) Nicotine dependence: Assessment and Plan: 1. Nicotine patch 2. Smoking cessation education Fall Risk Details Topete Fall Scale Risk Level: Moderate Fall Risk Current Medications: Current Medications Acetaminophen (Acetaminophen 325 Mg Tablet) 650 mg PO Q4H PRN PRN Reason: Pain Last Admin: 10/20/24 21:01 Dose: 650 mg Albuterol Sulfate (Ipratropium/Albuterol Sulfate 3 Ml Ampul.Neb) 3 ml INH RQID [facility] Last Admin: 10/21/24 15:25 Dose: 3 ml Amlodipine Besylate (Amlodipine Besylate 5 Mg Tablet) 5 mg PO DAILY [facility] Last Admin: 10/21/24 09:32 Dose: 5 mg Budesonide (Budesonide 0.5 Mg/2 Ml Ampul.Neb) 0.5 mg INH RBID [facility] Last Admin: 10/21/24 07:41 Dose: 0.5 mg Guaifenesin (Guaifenesin 600 Mg Tab.Er.12h) 600 mg PO BID [facility] Last Admin: 10/21/24 09:23 Dose: 600 mg Sodium Chloride (Sodium Chloride) 1,000 mls @ 75 mls/hr IV CONT [facility] Last Admin: 10/21/24 06:00 Dose: 75 mls/hr Ceftriaxone Sodium 1 gm/ (Sodium Chloride) 50 mls @ 100 mls/hr IV DAILY [facility] Last Infusion: 10/21/24 10:19 Dose: Infused Azithromycin 500 mg/ Sodium (Chloride) 250 mls @ 250 mls/hr IV Q24H [facility] Stop: 10/22/24 11:59 Last Infusion: 10/21/24 13:11 Dose: Infused Methylprednisolone Sodium Succinate (Methylprednisolone Sod Succ/Pf 40 Mg/Ml Vial) 40 mg INJ Q12H [facility] Last Admin: 10/21/24 09:23 Dose: 40 mg Nicotine (Nicotine 14 Mg Patch.Td24) 1 each TD DAILY [facility] Last Admin: 10/21/24 09:32 Dose: Not Given Ondansetron HCl (Ondansetron Hcl/Pf 4 Mg/2 Ml Vial) 4 mg INJ Q6H PRN PRN Reason: Nausea And Vomiting Polyethylene Glycol (Polyethylene Glycol 3350 17 Gm Powd.Pack) 17 gm PO DAILY PRN PRN Reason: Constipation Simethicone (Simethicone 20 Mg/0.3 Ml) 20 mg PO Q4H PRN PRN Reason: Indigestion Time Spent With Patient Time: Total time spent is greater than 50% in coordination of care (as documented) at patient's floor/unit and/or counseling patient: 35 minutes Time with patient: greater than 35 minutes
[2024-10-21] MEDS: ENOXAPARIN SODIUM 40 MG/0.4 ML SYRINGE SUBQ SCH (20:53)
[2024-10-22 05:25] LABS: Basophils #(Absolute) Auto 0.0 (0.0-0.1); Basophils%(Percent) Auto 0.1 (0.0-1.3); Eosinophils#(Absolute)Auto 0.0 (0.0-0.3); Eosinophils%(Percent) Auto 0.0 % (0.0-4.0); Granulocytes % - Auto 87.1 % (49.1-73.1); Granulocytes#(Absolute)- Auto 10.9 (2.0-6.2); Hematocrit 44.4 % (41.3-50.1); Mean Corpuscular Volume 89.7 fl (81.9-96.5); Monocytes #(Absolute)- Auto 0.5 (0.2-0.8); Monocytes %(Percent)- Auto 3.7 % (4.5-10.7); Platelet Count 170 K/uL (142-355); White Blood Count 12.5 K/uL (3.7-9.6)
[2024-10-22 05:39] LABS: Carbon Dioxide 26.0 mmol/L (21-32); Glucose 148.0 mg/dL (70-110); Potassium 3.7 mmol/L (3.6-5.2); Sodium 138.0 mmol/L (136-145)
[2024-10-22 08:06] VITALS: RESP 19
--- NOTE | 2024-10-22 09:50 | Progress Note ---
Progress Note: Subjective Subjective Interval history: Mr. Flannery has no complaints this morning. He states that he is beginning to feel better after tx. Vitals at baseline. BUN trended down to 30 and CK is normal with IVF we will continue hydration. Glucoses have been elevated with no hx of diabetes so we will check A1C. WBC's are still elevated at 14, steriods vs PNA. Exam Constitutional: Vital Signs - 24 hr 10/21/24 11:06 10/21/24 11:46 10/21/24 12:06 Temperature 97.8 F Pulse Rate 80 Pulse Rate [Left] 78 Respiratory Rate 17 Blood Pressure [Le ft Arm] 149/76 Pulse Oximetry 95 97 95 Oxygen Delivery Me thod Aerosol Mask Room Air Oxygen Flow Rate 2 Fraction of Inspir ed Oxygen 28 10/21/24 15:26 10/21/24 16:00 10/21/24 20:07 Temperature 98.2 F 98.5 F Pulse Rate Pulse Rate [Left] 59 L 102 H Respiratory Rate 19 24 Blood Pressure [Le ft Arm] 157/68 162/86 Pulse Oximetry 95 91 L 96 Oxygen Delivery Me thod Room Air Oxygen Flow Rate Fraction of Inspir ed Oxygen 10/21/24 20:13 10/22/24 00:00 10/22/24 04:00 Temperature 98.4 F 97.7 F Pulse Rate Pulse Rate [Left] 88 75 Respiratory Rate 18 18 Blood Pressure [Le ft Arm] 141/66 166/92 Pulse Oximetry 95 92 L 94 L Oxygen Delivery Me thod Room Air Room Air Oxygen Flow Rate Fraction of Inspir ed Oxygen 10/22/24 08:00 Temperature 98 F Pulse Rate Pulse Rate [Left] 62 Respiratory Rate 19 Blood Pressure [Le ft Arm] 172/93 Pulse Oximetry 95 Oxygen Delivery Me thod Room Air Oxygen Flow Rate Fraction of Inspir ed Oxygen Progress Note: Objective Labs Labs: CBC 10/22/24 Range/Units 04:30 WBC 12.5 H (3.7-9.6) K/uL RBC 5.0 (4.40-5.80) M/uL Hgb 15.3 (14.0-17.4) gm/dL Hct 44.4 (41.3-50.1) % Plt Count 170 (142-355) K/uL Gran % 87.1 H (49.1-73.1) % Lymph % (Auto) 9.1 L (17.6-39.05) % [place] % (Auto) 3.7 L (4.5-10.7) % Eos % (Auto) 0.0 (0.0-4.0) % Baso % (Auto) 0.1 (0.0-1.3) Lymph # (Auto) 1.1 (0.8-2.9) [place] # (Auto) 0.5 (0.2-0.8) Eos # (Auto) 0.0 (0.0-0.3) Baso # (Auto) 0.0 (0.0-0.1) Absolute Gran (auto) 10.9 H (2.0-6.2) CMP 10/22/24 04:30 Sodium 138 Potassium 3.7 Chloride 103.0 Carbon Dioxide 26 BUN 16 Creatinine 1.0 Glucose 148 H Calcium 8.1 L Liver Function 10/22/24 Range/Units 04:30 Total Bilirubin 0.62 (0.0-1.0) mg/dL AST 49 H (15-37) U/L ALT 53 (30-65) U/L Alkaline Phosphatase 99 (50-136) U/L Albumin 2.8 L (3.4-5.0) g/dL Urine 10/18/24 19:15 Urine Color Annalise Urine Appearance Clear Ur Specific [place] 1.020 Urine Protein 2+ Urine Glucose (UA) Trace Progress Note: A&P Assessment and Plan (1) COPD exacerbation: Assessment and Plan: Zpak Rocephin 1gm IV daily Duoneb QID Pulmicort BID Mucinex 600mg po BID Solumedrol 40mg IV BID (2) Fall: Assessment and Plan: PT eval (3) YOLANDA (acute kidney injury): Assessment and Plan: NS@75ml/hr (4) Hypoalbuminemia: Assessment and Plan: Continue to monitor (5) High plasma creatine kinase (CK): Assessment and Plan: Resolved (6) Hypoxia: Assessment and Plan: 1. Supplemental oxygen at 2 liters via NC 2. 6-minute walk 3. Repeat CXR Fall Risk Details [place] Fall Scale Risk Level: Moderate Fall Risk Current Medications: Current Medications Acetaminophen (Acetaminophen 325 Mg Tablet) 650 mg PO Q4H PRN PRN Reason: Pain Last Admin: 10/20/24 21:01 Dose: 650 mg Albuterol Sulfate (Ipratropium/Albuterol Sulfate 3 Ml Ampul.Neb) 3 ml INH RQID [facility] Last Admin: 10/21/24 20:12 Dose: 3 ml Amlodipine Besylate (Amlodipine Besylate 5 Mg Tablet) 5 mg PO DAILY [facility] Last Admin: 10/21/24 09:32 Dose: 5 mg Budesonide (Budesonide 0.5 Mg/2 Ml Ampul.Neb) 0.5 mg INH RBID [facility] Last Admin: 10/21/24 20:12 Dose: 0.5 mg Enoxaparin Sodium (Enoxaparin Sodium 40 Mg/0.4 Ml Syringe) 40 mg SUBQ Q24H [facility] Last Admin: 10/21/24 21:13 Dose: Not Given Guaifenesin (Guaifenesin 600 Mg Tab.Er.12h) 600 mg PO BID [facility] Last Admin: 10/21/24 20:53 Dose: 600 mg Sodium Chloride (Sodium Chloride) 1,000 mls @ 75 mls/hr IV CONT [facility] Last Admin: 10/22/24 04:10 Dose: Not Given Ceftriaxone Sodium 1 gm/ (Sodium Chloride) 50 mls @ 100 mls/hr IV DAILY [facility] Last Infusion: 10/21/24 10:19 Dose: Infused Azithromycin 500 mg/ Sodium (Chloride) 250 mls @ 250 mls/hr IV Q24H [facility] Stop: 10/22/24 11:59 Last Infusion: 10/21/24 13:11 Dose: Infused Methylprednisolone Sodium Succinate (Methylprednisolone Sod Succ/Pf 40 Mg/Ml Vial) 40 mg INJ Q12H [facility] Last Admin: 10/21/24 20:53 Dose: 40 mg Nicotine (Nicotine 14 Mg Patch.Td24) 1 each TD DAILY [facility] Last Admin: 10/21/24 09:32 Dose: Not Given Ondansetron HCl (Ondansetron Hcl/Pf 4 Mg/2 Ml Vial) 4 mg INJ Q6H PRN PRN Reason: Nausea And Vomiting Polyethylene Glycol (Polyethylene Glycol 3350 17 Gm Powd.Pack) 17 gm PO DAILY PRN PRN Reason: Constipation Simethicone (Simethicone 20 Mg/0.3 Ml) 20 mg PO Q4H PRN PRN Reason: Indigestion Time Spent With Patient Time: Total time spent is greater than 50% in coordination of care (as documented) at patient's floor/unit and/or counseling patient:
--- NOTE | 2024-10-22 12:03 | Discharge Summary ---
DS: Providers Provider Date of admission: 10/19/24 03:17 Primary care physician: Ora Lovell DO Consults: 10/20/24 11:59 Consult to Physical Therapy Routine Comment: Consulting Provider: Reason for consultation: hx fall Physician Instructions: milton and dominique 10/21/24 15:53 Consult to Physical Therapy Routine Comment: Consulting Provider: Reason for consultation: Fall at home Physician Instructions: Evaluate and Treat DS: Diagnosis Discharge Diagnosis (1) COPD exacerbation: Assessment and plan: 1. Discharge home on supplemental oxygen 2. Prescription for Cefdinir, Prednisone, Albuterol and Symbicort inhalers 2. Follow-up with referral to pulmonology. This appointment to be coordinated by PCP. (2) Fall: Assessment and plan: 1. PT evaluation completed 2. Discharge home with home health (3) YOLANDA (acute kidney injury): Assessment and plan: 1. Resolved with IV hydration 2. Limit/avoid nephrotoxins (4) Hypoalbuminemia: Assessment and plan: 1. To be followed by PCP (5) High plasma creatine kinase (CK): Assessment and plan: 1. Resolved with IV hydration (6) Hypoxia: Assessment and plan: 1. Discharge home with supplemental oxygen 2. Follow-up with referral to pulmonology 3. Prescription for Cefdinir, Prednisone, Albuterol and Symbicort inhalers (7) Leukocytosis: Assessment and plan: 1. UA negative 2. Preliminary blood culture negative 3. Follow up with PCP with repeat labs on Sunday DS: Summary Hospital Course Hospital Course: Mr. Pepe Flannery is a 74-year-old male who presented to the ER on 10/18/24 with complaints of worsening dyspnea and generalized weakness. Patient reportedly had a fall at home and was found on the floor by his brother prior to arrival. He denied any loss consciousness or dizziness. Patient was evaluated in the ER and was found to be tachycardic, hypertensive, and tachypneic. Patient has a history of HTN and is admittedly noncompliant with medications. Oxygen saturation 97% on room air. CBC revealed leukocytosis with a WBC of 15.8. Albumin 2.8. CPK was elevated at 526 which is likely due to laying in the floor for an unknown length of time. CT Head with chronic microvascular changes, no acute changes with stable 5.1 x 4.3 cm frontal region mass consistent with meningioma. Chest x-ray consistent with COPD. CTA negative for PE, findings of infectious vs malignancy. Ulcerative plaques on thoracic abdominal aorta. BUN 57 and creatinine 1.9. Troponin was normal X 2 and noted to trend downward. Blood cultures collected. He was started on IV NS @ 75 and given an initial dose of Rocephin, Zithromax, and Solumedrol. Patient was admitted for further evaluation and treatment. Hospital course uneventful. He has been treated with NS @ 75, Neb Treatments, Azithromycin, Solumedrol, and Ceftriaxone. Physical therapy has been consulted for evaluation due to s/p fall at home. CPK has continued to trend downward and was 252 on 10/20/24. BUN has continue to improve with IV hydration and was 16 with a creatinine of 1.0 this morning. Potassium 3.4 on 10/21/24 and was supplemented with 20mEq PO. It has returned baseline of 3.7 this morning. Leukocytosis is improving, but remains mildly elevated secondary to infection vs steroids. Glucose has been high on morning labs with no history of diabetes. A1C 5.7 on 10/20/24. Patient was treated with LMWH for DVT prophylaxis. Preliminary blood culture negative after 3 days. Patient has reported feeling "a little better" each day but is noted to have increased work of breathing and complaints of dyspnea with minimal exertion which he reports is his baseline. No wheezing noted upon assessment. Patient denies chronic home O2. 6 minute walk test completed and patient qualifies for home oxygen. Upon evaluation this morning, patient reports that he feels he has returned to his baseline. He is alert and oriented to person, place, time, and situation. Patient has agreed to discharge home with home health services. He will be discharged with prescription for prednisone, cefdinir, albuterol and symbicort inhalers. No acute complaint at time of discharge. Patient informed of treatment plan, diagnostic testing and results, and discharge instructions. At this time, the patient has met all discharge goals and no longer necessitates hospitalization. Appropriate disposition arrangements have been made, and follow-up care has been coordinated. Follow up with PCP on Sunday with repeat labs. Will discharge patient home with O2 and home health for medication and disease management. Patient's brother to picked edge sewing machine operator portable oxygen tank and bring with him when he comes to transport patient home. Patient to follow-up with pulmonology on an outpatient basis for further evaluation of CTA findings. This appointment will be coordinated by PCP office. The patient has been instructed to return to the ED if symptoms return or worsen. I have discussed with and counseled the patient the health risks of tobacco and cigarette smoke, including heart disease and stroke. There is also the economic benefit to quitting smoking. I have encouraged the patient to stop smoking and follow-up with their PCP for more information on smoking cessation. I have assured he is aware of the available resources. This included approximately 3-5 minutes of education, interaction, and documentation. Time spent discussing smoking cessation with patient: 3 to 10 minutes Status at Discharge Functional status at discharge: independent ambulation Overall status at discharge: patient is back to baseline Time Spent with Patient Time attestation: Total time spent providing and/or coordinating discharge services: Spent 35 minutes [id number] with patient performing discharge planning, reviewing hospital course, providing instructions, obtaining DME, and coordinating home health services. Time spent: greater than 30 minutes Specific discharge activities: Met with patient to discuss disease process, disease progression, and care trajectory. Patient agreeable to discuss advanced care planning and wishes to remain a full code at this time. Time spent discussing ACP: 20 minutes Exam Constitutional: abnormal general appearance (chronically ill) and (frail appearing), no apparent distress, abnormal body habitus (cachectic) and (thin), limitations noted (physical limitations) and alert Vital Signs - 24 hr 10/21/24 12:06 10/21/24 15:26 10/21/24 16:00 Temperature 98.2 F Pulse Rate [Left] 59 L Respiratory Rate 19 Blood Pressure [Le ft Arm] 157/68 Pulse Oximetry 95 95 91 L Oxygen Delivery Me thod Room Air 10/21/24 20:07 10/21/24 20:13 10/22/24 00:00 Temperature 98.5 F 98.4 F Pulse Rate [Left] 102 H 88 Respiratory Rate 24 18 Blood Pressure [Le ft Arm] 162/86 141/66 Pulse Oximetry 96 95 92 L Oxygen Delivery Me thod Room Air 10/22/24 04:00 10/22/24 08:00 Temperature 97.7 F 98 F Pulse Rate [Left] 75 62 Respiratory Rate 18 19 Blood Pressure [Le ft Arm] 166/92 172/93 Pulse Oximetry 94 L 95 Oxygen Delivery Me thod Room Air Room Air HENMT: normocephalic, head/scalp atraumatic, hearing grossly normal bilaterally, external ears normal, EACs normal, nasal mucous membranes normal, external nose normal, oral mucous membranes normal and oropharynx normal Eyes: PERRL, EOMs intact bilaterally, conjunctivae normal, no scleral icterus, periorbital findings normal and no nystagmus Neck/C-Spine: visual inspection normal, trachea midline and cervical spine no ntender Lymph: no lymphadenopathy noted and no lymphedema noted Chest: inspection of chest normal and palpation of chest normal Respiratory: breath sounds unequal, normal respiratory effort, clear to auscultation bilaterally, wheezing noted (scattered wheezes), rales noted (throughout), no retractions, no use of accessory muscles and chest percussion normal Cardiovascular: heart rate abnormal (bradycardic), rhythm abnormal (irregular), no gallop, no rub, murmur noted, no JVD, peripheral pulses 2+ throughout, no bruits noted and no additional abnormal heart sounds Gastrointestinal: abdomen normal to inspection, abdomen soft to palpation, nontender to palpation, nondistended, normoactive bowel sounds, no masses, no pulsatile mass, no ascites and no hernia Genitourinary: no CVA tenderness and bladder normal to palpation Back/Pelvis: spine normal to inspection Extremities: abnormal to inspection, normal to palpation, no tenderness, abnormal ROM noted, no joint enlargement and no deformity 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, no movement abnormality noted, no focal motor deficit noted, no sensory deficits noted, deep tendon reflexes 2+ bilaterally, gait abnormality noted (shuffling), speech normal, coordination normal, no pronator drift noted, no fasciculations noted and GCS normal Psychiatry: Mental Status Exam documented within this Exam's Psych section mental status grossly normal, oriented x3, thought process abnormality noted, cooperative, affect normal, psychomotor abnormality noted (agitated) and memory abnormal Feel stressed/tense/nervous/anxious/difficulty sleeping: not at all Skin: skin color normal and nails abnormality noted Reports (clubbing) DS: Data Data Completed and Pending Labs on day of discharge: Labs from last 24 hours 10/22/24 04:30 WBC 12.5 H RBC 5.0 Hgb 15.3 Hct 44.4 MCV 89.7 MCH 31.0 MCHC 34.6 RDW 13.4 Plt Count 170 MPV 10.2 Gran % 87.1 H Lymph % (Auto) 9.1 L [place] % (Auto) 3.7 L Eos % (Auto) 0.0 Baso % (Auto) 0.1 Lymph # (Auto) 1.1 [place] # (Auto) 0.5 Eos # (Auto) 0.0 Baso # (Auto) 0.0 Absolute Gran (auto) 10.9 H Sodium 138 Potassium 3.7 Chloride 103.0 Carbon Dioxide 26 Anion Gap 9.0 BUN 16 Creatinine 1.0 Estimated GFR 78.5 Glucose 148 H Calcium 8.1 L Total Bilirubin 0.62 AST 49 H ALT 53 Alkaline Phosphatase 99 Total Protein 6.5 Albumin 2.8 L Preliminary micro results at discharge 10/19/24 03:37 Blood Culture - Preliminary Blood - Venous Draw (Peripheral) Discharge Plan Discharge Disposition: Home, Self-Care Condition: Stable Discharge Medications: New cefdinir 300 mg capsule 300 mg PO BID Qty: 10 0RF prednisone 20 mg tablet 20 mg PO DAILY Qty: 6 0RF Rx Instructions: 20mg PO daily for 2 days, then 10mg PO daily for 2 days, then 5mg daily for 2 days budesonide-formoterol [Symbicort] 80-4.5 mcg/actuation HFA aerosol inhaler 2 puff inhalation BID Qty: 10.2 0RF albuterol sulfate 90 mcg/actuation HFA aerosol inhaler 2 puff inhalation QID PRN (Reason: shortness of breath or wheezing) Qty: 6.7 0RF Continued losartan 100 mg tablet 100 mg PO DAILY 30 Days Qty: 30 0RF amlodipine [Norvasc] 5 mg tablet See Rx Instructions .ROUTE .COMPLEX Qty: 30 0RF Rx Instructions: 5 mg orally daily at bedtime Discharge Orders: Discharge Order (Routine); Ordered 10/22/24 Ordered By: Gely Zarate Activity: increase activity as tolerated and wear oxygen at all times Diet: advance to your usual diet Interventions: Discharge Assessment Last Done: 10/22/24 16:55 MED/SURG & ICU Observation Charge Sheet Last Done: 10/22/24 16:57 Activity Restrictions/Additional Instructions: Patient to be discharged home with home health and supplemental oxygen. Forms: Portal/Health Info Access Inst Follow-Ups: Ora Lovell DO [Primary Care Provider, Medical] - 10/27/24 10:30 am Provider,NO PCP [Physician, Adminstration] Discharge Date/Time: 10/22/24 17:30
[2024-10-22 16:06] VITALS: BP 164/77; PULSE 63; TEMP 98
== END 2024-10-22 17:30 | disposition home health service (06) | DRG 191 ==
LOC: ED 15:44 → MS 15:44 → OBSVTOIN 10-19 03:17 → MS 10-19 03:55
PROVIDERS: ADMIT Nurse Practitioner Family; ATTEND Nurse Practitioner Family
DX: D72.829 Elevated white blood cell count, unspecified; R09.02 Hypoxemia; E87.6 Hypokalemia; R79.89 Other specified abnormal findings of blood chemistry; E88.09 Other disorders of plasma-protein metabolism, not elsewhere classified; T38.0X5A Adverse effect of glucocorticoids and synthetic analogues, initial encounter; N17.9 Acute kidney failure, unspecified; S00.83XA Contusion of other part of head, initial encounter; I10 Essential (primary) hypertension; J44.1 Chronic obstructive pulmonary disease with (acute) exacerbation; R00.0 Tachycardia, unspecified; I48.91 Unspecified atrial fibrillation; Z91.148 Patient's other noncompliance with medication regimen for other reason; F17.210 Nicotine dependence, cigarettes, uncomplicated; W19.XXXA Unspecified fall, initial encounter